=== PATIENT | female | born 1995 | race Caucasian/White ===

== ENCOUNTER 2019-02-20 19:54 | Emergency (ER) | payer BC, MEDICAID ==
[~2019-02-20] VITALS: Ht 172.7 cm; Wt 92.1 kg
[~2019-02-20 19:54] MED LIST: ALLEGRA
[2019-02-20 20:07] VITALS: BP 125/73
--- NOTE | 2019-02-20 20:11 | NUR ---
TO LOBBY AWAITING BED IN ED, VSS.
--- NOTE | 2019-02-20 21:19 | NUR ---
PT REMAINS IN LOBBY IN STABLE CONDITION, AWAITING BED IN ED.
--- NOTE | 2019-02-20 21:43 | NUR ---
wheelchair assisted to er bed 8 with family member.
--- NOTE | 2019-02-20 22:00 | NUR ---
23 YO F BIB SELF AND FAMILY PRESENTS TO ED C/O RT 2/10 ANKLE PAIN S/P MECH FALL X 1915 TODAY. CMS IN TACT. ROM IN TACT WITH SOME WEAKNESS PRESENT. PMH-- DENIES
[2019-02-20] MEDS ORDERED: IBUPROFEN 800 MG TAB PO ONE (22:05)
--- NOTE | 2019-02-20 22:15 | NUR ---
PTS RIGHT ANKLE WAS WRAPPED WITH AN HEATH BANDAGE THEN CRUTCHES WERE GIVEN. PT DEMONSTRATED GOOD USE OF CRUTCHES
[2019-02-20 22:26] VITALS: BP 125/73
--- NOTE | 2019-02-20 22:26 | NUR ---
Patient discharged with v/s stable. Written and verbal after care instructions given and explained. Patient alert, oriented and verbalized understanding of instructions. Ambulatory with steady gait. All questions addressed prior to discharge. ID band removed. Patient advised to follow up with PMD. Rx of IBUPROFEN WAS given. Patient educated on indication of medication including possible reaction and side effects. Opportunity to ask questions provided and answered. PT WAS EDUCATED ON THE USE OF CRUTCHES. PT WAS ABLE TO PROPERLY USE THE CRUTCHES. PT PAIN EVEL DECREASED TO 3/10 PRIOR TO D/C
== END 2019-02-20 22:26 | disposition home or self-care (01) ==
LOC: MED 19:54
DX: S93.401A Sprain of unspecified ligament of right ankle, initial encounter (principal); Z79.899 Other long term (current) drug therapy; W01.0XXA Fall on same level from slipping, tripping and stumbling without subsequent striking against object, initial encounter; Y93.E1 Activity, personal bathing and showering; Y92.89 Other specified places as the place of occurrence of the external cause; Y99.8 Other external cause status
CPT/HCPCS: 73610; 99283

== ENCOUNTER 2022-04-14 07:57 | Emergency (ER) | payer MEDICAID ==
[~2022-04-14] VITALS: Ht 172.7 cm; Wt 84.4 kg
[2022-04-14 08:00] VITALS: BP 116/57
--- NOTE | 2022-04-14 08:07 | NUR ---
PT AMBULATED TO BATHROOM WITH STEADY GAIT
--- NOTE | 2022-04-14 08:18 | NUR ---
26/F C/O RIGHT KNEE PAIN X3 DAYS AFTER TRIPPING AND FALLING ONTO HER KNEE 3 DAYS AGO. PATIENT DENIES HEAD OR NECK INJURY, REPORTS 3/10 THROBBING PAIN THAT WORSENS WITH WALKING AND PROLONGED STANDING. ABRASION NOTED TO RIGHT KNEE, NO ACTIVE BLEEDING OR SIGNS OF INFECTION AT THIS TIME. PATIENT DENIES TAKING PAIN MEDICATION, DENIES FEVERS OR CHILLS.
[2022-04-14 09:23] VITALS: BP 116/57
--- NOTE | 2022-04-14 09:23 | NUR ---
Patient discharged with v/s stable. Written and verbal after care instructions ABOUT WOUND CARE given and explained. Patient verbalized understanding. Ambulatory with steady gait. All questions addressed prior to discharge. Advised to follow up with PMD.
== END 2022-04-14 09:23 | disposition home or self-care (01) ==
LOC: MED 07:57
DX: S80.211A Abrasion, right knee, initial encounter (principal); W19.XXXA Unspecified fall, initial encounter; Y93.89 Activity, other specified; Y92.89 Other specified places as the place of occurrence of the external cause; Y99.8 Other external cause status
CPT/HCPCS: 81002; 81025; 90471; 90715; 99283